=== PATIENT | female | born 1960 | race Hispanic/Latino ===

== ENCOUNTER 2021-11-18 09:31 | Day surgery (SDC) | payer BC ==
--- NOTE | 2021-11-15 09:12 | EKG ---
Test Date: 2021-11-14 Test Time: 13:38:01 Library Assistant: EZEQUIEL MEASUREMENT RESULTS: Intervals: Rate: 55 PA: 160 QRSD: 90 QT: 378 QTc: 361 Peck: P: 37 PA: 160 QRS: 47 T: 41 INTERPRETIVE STATEMENTS: Sinus bradycardia Otherwise normal ECG No previous ECG available for comparison Electronically Signed On 11-15-21 09:09:18 [employer]TER by Kiran Pak
[2021-11-18] MEDS ORDERED: Ringers Lactate 1,000 ML IV ONE ×2 (09:55→13:11)
[2021-11-18] MEDS: LIDOCAINE 1% W/EPI 1:100,000 MDV 50 ML VIAL ONE ×2 (10:17→11:18)
[2021-11-18 10:20] LABS: ALT/SGPT 37 U/L (12-78); AST/SGOT 16 U/L (15-37); Albumin 3.6 g/dL (3.4-5.0); Alkaline Phosphatase 99 U/L (45-117); BUN Blood Urea Nitrogen 16 mg/dL (7-18); Bicarbonate 27 mmol/L (21-32); Bilirubin Total 0.4 mg/dL (0.2-1.0); Glucose Level 94 mg/dL (74-106); Potassium 4.2 mmol/L (3.5-5.1); Protein, Total 6.9 g/dL (6.4-8.2); Sodium Level 143 mmol/L (136-145)
[2021-11-18] MEDS ORDERED: ROCURONIUM 50 MG/5 ML VIAL IV ONE (10:23)
[2021-11-18] MEDS ORDERED: LIDOCAINE 2% MPF 5 ML VIAL ONE (10:23)
[2021-11-18] MEDS ORDERED: MIDAZOLAM HCL 2 MG/2 ML INJ ONE (10:23)
[2021-11-18] MEDS ORDERED: ONDANSETRON 4 MG/2 ML VIAL ONE (10:23)
[2021-11-18] MEDS ORDERED: FENTANYL CITR 250 MCG/5 ML ONE (10:23)
[2021-11-18] MEDS ORDERED: dexAMETHasone 10 MG/ML VIAL ONE (10:23)
[2021-11-18] MEDS ORDERED: propofoL 200 MG/20 ML VIAL IV ONE (10:23)
[2021-11-18] MEDS ORDERED: EPHEDRINE SULF 50 MG/ML VIAL ONE (11:18)
[2021-11-18] MEDS ORDERED: KETOROLAC 30 MG/ML INJ ONE (13:18)
--- NOTE | 2021-11-18 13:35 | P.OP ---
Medical Aide: Keely Pavon Preoperative diagnosis: Primary hyperparathyroidism, hypercalcemia Postoperative diagnosis: Same Primary procedure: Left parathyroidectomy Anesthesia: General Estimated blood loss: 5 to 10 mL Specimen: Left parathyroid for permanent section Findings: 3 cm left parathyroid located posterior to the left thyroid Operative Technique: In the preop area, blood specimen was collected confirming a calcium of 11.4 and a PTH of 364. The patient was brought to the patient was brought to the operating room. She was placed under general anesthesia via oral endotracheal tube. Shoulder roll was placed and the neck was extended with support of the head for best exposure of the neck. The patient was noted to be morbidly obese with a very short neck. Her breasts and soft tissue of the upper chest was retracted and secured with wide tape to improve exposure of the neck. The planned incision site was injected with 1% lidocaine with epinephrine. Neck was then prepped and draped in a standard fashion for anterior neck surgery. A 5 cm incision was made through the skin and subcutaneous tissue. The platysma muscle was identified and divided. Subplatysmal flaps were developed using Bovie electrocautery. The strap muscles were identified in the midline and . The strap muscles were then elevated off of the capsule of the left thyroid gland. The inferior pole of the thyroid was identified and carefully dissected from soft tissue and vascular attachments along its inferior, lateral, and superior aspects in order to allow for mobilization of the tissue. The left thyroid was left attached at the isthmus and was retracted medially for exposure to the deeper tissues. With palpation of this retrothyroid tissue, the pa rathyroid was identified, was approximately 2 to 3 cm on palpation and firm in nature. The superior aspect of this was carefully identified using dissection through the fatty tissues. On the medial aspect of the mass, the left recurrent laryngeal nerve was identified and judiciously elevated off of the medial aspect of the large parathyroid adenoma. During retraction of the superior portion of this parathyroid tissue, the cystic portion ruptured with extravasation of a mary serous fluid into the wound bed. This was carefully suctioned and patted dry with a Ray-Ike. The LigaSure was then used to continue dissection and division of soft tissue attachments at the superior pole. The capsule of the parathyroid was then encountered which allowed increased ease of dissection which was performed bluntly with a peanut sponge. Additional fascial attachments were divided using the LigaSure and the dissection was carried out along the capsule in a circumferential fashion. The parathyroid adenoma was then elevated and the deeper attachments divided using LigaSure, taking care to avoid damage to the recurrent laryngeal nerve. The specimen was set aside and the surgical cavity was packed with a Ray-Ike for several minutes. A timer was set for 15 minutes after removal of the packing, the wound was reinspected. There is a small amount of oozing which was minimal and direct pressure using a Ray-Ike was applied to this area. Cauterization was avoided due to its proximity to the recurrent laryngeal nerve. After the 15-minute interval, a blood specimen was collected from the patient by the anesthesia service and sent to the lab for stat PTH measurement to ensure biochemical complete response. All packing was removed and the wound was carefully inspected. A small amount of bleeding on the inferior lateral and posterior aspect of the thyroid was treated with cauterization. The wound appeared dry and no dissolvable packing or hemostatic agent was felt to be necessary. No drain was placed. After confirmation of sponge counts, the strap muscles were approximated with a single suture across the midline. The platysmal flaps were approximated with deep Vicryl sutures. The skin was approximated using 4-0 Monocryl subcuticular sutures. The intraoperative PTH measurement was confirmed at 36.7 indicating excellent biochemical response to surgery with no need for additional neck exploration. Mastisol and Steri-Strips were applied to the incision. The skin was cleaned and dried, the retaining tape was removed from the upper chest wall. The patient was returned to anesthesia for awakening extubation in the operating room which proceeded without difficulty. Complications: None Implants: None Fluids & blood products: See anesthesia record Transferred to: Recovery Room Condition: Good
[2021-11-18 14:25] VITALS: BP 113/53; TEMP 97.1; O2SAT 93
== END 2021-11-18 15:00 | disposition home or self-care (01) ==
LOC: OR 09:31
PROVIDERS: ATTEND Otolaryngology
PROC: 0GTR0ZZ Resection of Parathyroid Gland, Open Approach (ICD-10-PCS; principal; 2021-11-18 10:45)
DX: E21.0 Primary hyperparathyroidism (principal); E83.52 Hypercalcemia; Z20.822 Contact with and (suspected) exposure to COVID-19
CPT/HCPCS: 93005; 36415; 88305; 83970 ×2; 80053; 82306; 60500; U0002; J2704; J2250; J3010; J1100; J7120 ×2; J2405